=== PATIENT | male | born 1985 | race Two or more races ===

== ENCOUNTER 2019-04-19 18:20 | Emergency (ER) | payer SELFPAY ==
[2019-04-19] MEDS ORDERED: Diphtheria,Pertussis(Acell),Tetanus Vaccine 0.5 ML Syringe IM ONE (18:52)
--- NOTE | 2019-04-19 19:00 | EDM.PDOC ---
ED HPI GENERAL MEDICAL PROBLEM - General Chief Complaint: Wound Recheck Stated Complaint: LEG RECHECK Time Seen by Provider: 04/19/19 18:35 Source of Information: Reports: Patient, RN Notes Reviewed History Limitations: Reports: No Limitations - History of Present Illness INITIAL COMMENTS - FREE TEXT/NARRATIVE: Patient is a 33-year-old male who presents to the ED for evaluation of a wound check. The patient notes that he cut himself with an electrical saw roughly 1 week ago. He was never evaluated for this wound. This is located on his medial lateral right calf. He has been dressing this with hydrogen peroxide and bandages. He notes that the skin around the wound is dry, and is starting to turn purple in nature. He is not complaining of any drainage from the wound nor does he complain of any fevers or chills. He notes mild pain in the area of the wound when he dorsiflexes his right foot. Patient notes he is not sure of his last tetanus booster. - Related Data Allergies Allergy/AdvReac Type Severity Reaction Status Date / Time No Known Allergies Allergy Verified 04/19/19 18:52 Home Meds: Home Meds cephALEXin [Cephalexin] 500 mg PO TID #21 capsule 04/19/19 [Rx] Past Medical History - Past Health History Medical/Surgical History: Denies Medical/Surgical History Social & Family History - Tobacco Use Smoking Status *Q: Current Every Day Smoker Years of Tobacco use: 6 Packs/Tins Daily: 0.1 - Caffeine Use Caffeine Use: Reports: None - Recreational Drug Use Recreational Drug Use: No ED ROS GENERAL - Review of Systems Review Of Systems: See Below Constitutional: Denies: Fever, Chills HEENT: Reports: No Symptoms Respiratory: Denies: Shortness of Breath Cardiovascular: Denies: Chest Pain Endocrine: Reports: No Symptoms GI/Abdominal: Reports: No Symptoms : Reports: No Symptoms Musculoskeletal: Reports: No Symptoms Skin: Reports: Erythema (surrounding erythema to wound), Wound (healing wound to R medial lateral calf.) ED EXAM, SKIN/RASH Exam: See Below Exam Limited By: No Limitations General Appearance: Alert, WD/WN, No Apparent Distress Respiratory/Chest: No Respiratory Distress, Lungs Clear, No Accessory Muscle Use , Chest Non-Tender Cardiovascular: Normal Peripheral Pulses, Regular Rate, Rhythm, No Murmur Peripheral Pulses: 3+: Dorsalis Pedis (L), Dorsalis Pedis (R) Extremities: Normal Inspection (with exception of wound to R leg), Normal Range of Motion, Non-Tender, Normal Capillary Refill, Increased Warmth (mild increase of warmth to wound on R mediolateral leg) Neurological: Alert, Oriented, Normal Cognition, No Motor/Sensory Deficits Psychiatric: Normal Affect, Normal Mood Skin: Warm, Dry, Normal Color, No Rash, Wound/Incision (healing wound to the R medial lateral calf. Mild erythema surrounding the area. No drainage noted) Course - Vital Signs Last Recorded V/S: Last Vital Signs Temp 98.5 F 04/19/19 18:28 Pulse 111 H 04/19/19 18:28 Resp 17 04/19/19 18:28 BP 134/86 04/19/19 18:28 Pulse Ox 100 04/19/19 18:28 - Orders/Labs/Meds Orders: Active Orders 24 hr Category Date Time Status Vaccines to be Administered [RC] PER UNIT ROUTINE Care 04/19/19 18:53 Ordered Meds: Medications Discontinued Medications Generic Name Dose Route Start Last Admin Trade Name Freq PRN Reason Stop Dose Admin Diphtheria/Tetanus/Acell Pertussis 0.5 ml 04/19/19 18:52 Adacel IM 04/19/19 18:53 .ONCE ONE - Re-Assessments/Exams Free Text/Narrative Re-Assessment/Exam: 04/19/19 18:59 Patient presents to the ED for evaluation of a wound recheck to his right leg. As he is unsure of his last tetanus, he will have this updated at today's visit. The wound appears to be healing appropriately, however there is an area that is reddened around it suspicious for a cellulitis or developing cellulitis in nature. Will send home with a prescription of cephalexin for prophylaxis at this time. Departure - Departure Time of Disposition: 19:00 Disposition: Home, Self-Care 01 Condition: Fair Clinical Impression: Visit for wound check - Discharge Information *PRESCRIPTION DRUG MONITORING PROGRAM REVIEWED*: No *COPY OF PRESCRIPTION DRUG MONITORING REPORT IN PATIENT PIO: No Prescriptions: cephALEXin [Cephalexin] 500 mg PO TID #21 capsule Instructions: Cellulitis, Adult, Wound Infection, [id number] Referrals: PCP,None [Primary Care Provider] - Additional Instructions: You were evaluated in the ER today for a wound recheck of your right lower leg. There was some surrounding areas of the wound, that were suspicious for infection, you were provided with a prescription for cephalexin, please take one tab 3 times daily if the redness starts to spread 2 fingerbreadths past the wound. [facility] on [address] , you may pick this up on Saturday. Please keep the wound clean and dry, you may cleanse with warm soap and water, dress with some bacitracin ointment and a bandage. Your tetanus booster was updated at today's ER visit. Please return to the ED if your symptoms change or worsen in any way. - My Orders Last 24 Hours: My Active Orders 04/19/19 18:53 Vaccines to be Administered [RC] PER UNIT ROUTINE - Assessment/Plan Last 24 Hours: My Active Orders 04/19/19 18:53 Vaccines to be Administered [RC] PER UNIT ROUTINE
== END 2019-04-19 19:12 | disposition home or self-care (01) ==
LOC: EDBD 18:20 → JD.ED 18:20
DX: S81.801A Unspecified open wound, right lower leg, initial encounter (principal); F17.200 Nicotine dependence, unspecified, uncomplicated; W27.0XXA Contact with workbench tool, initial encounter
CPT/HCPCS: 90471; 90700; 99282

== ENCOUNTER 2023-02-15 17:09 | Emergency (ER) | payer SELFPAY ==
[2023-02-15] MEDS ORDERED: Fluorescein 1 MG Ophth Strip EYELF ONE (17:28)
== END 2023-02-15 18:10 | disposition home or self-care (01) ==
LOC: JD.ED 17:09
DX: S05.52XA Penetrating wound with foreign body of left eyeball, initial encounter (principal)
CPT/HCPCS: 65222; 99283

== ENCOUNTER 2023-09-07 04:09 | Emergency (ER) | payer SELFPAY ==
[2023-09-07 04:30] LABS: BASOPHILS PERCENT AUTO 0.5 % (0.0-1.0); EOSINOPHILS ABSOLUTE AUTO 0.3 K/mm3 (0.0-0.4); EOSINOPHILS PERCENT AUTO 3.5 % (0.0-6.0); HEMATOCRIT 44.7 % (42.0-52.0); HEMOGLOBIN 15.1 gm/dl (14.0-18.0); IMMATURE GRAN ABSOLUTE AUTO 0.01 K/mm3 (0.00-0.05); IMMATURE GRAN PERCENT AUTO 0.1 % (0.0-0.4); LYMPHOCYTES ABSOLUTE AUTO 2.2 K/mm3 (1.0-4.8); LYMPHOCYTES PERCENT AUTO 27.3 % (24.0-44.0); MEAN CORPUSCULAR HEMOGLOBIN 31.7 pg (28.0-32.0); MEAN CORPUSCULAR HGB CONC 33.8 g/dl (32.0-36.0); MEAN CORPUSCULAR VOLUME 93.9 fl (83.0-99.0); MEAN PLATELET VOLUME 8.8 fl (9.4-12.4); MONOCYTES ABSOLUTE AUTO 0.6 K/mm3 (0.0-0.8); MONOCYTES PERCENT AUTO 7.5 % (0.0-8.0); NEUTROPHILS ABSOLUTE AUTO 4.9 K/mm3 (1.8-7.7); NEUTROPHILS PERCENT AUTO 61.1 % (41.0-71.0); PLATELET COUNT,PLT 212 K/mm3 (150-400); RED BLOOD CELL COUNT 4.76 M/mm3 (4.52-5.90); WHITE BLOOD CELL COUNT,WBC 7.95 K/mm3 (3.9-11.3)
[2023-09-07 04:44] LABS: INR 1.14; PROTHROMBIN TIME 12.1 SECONDS (9.7-12.0)
[2023-09-07 04:45] LABS: PTT,PARTIAL THROMBOPLSTIN TIME 31.5 SECONDS (21.7-31.4)
[2023-09-07 04:56] LABS: A/G RATIO 1.1 (1-2); ALANINE AMINOTRANSFERASE,ALT 35 U/L (16-63); ALBUMIN 4.3 g/dl (3.4-5.0); ALKALINE PHOSPHATASE 94 U/L (46-116); ASPARTATE AMNIOTRANSFERASE,AST 18 U/L (15-37); BILIRUBIN TOTAL 0.2 mg/dL (0.2-1.0); BLOOD UREA NITROGEN,BUN 15 mg/dL (7-18); BUN/CREATININE RATIO 13.6 (14-18); CALCIUM 8.9 mg/dL (8.5-10.1); CARBON DIOXIDE,CO2 30 mEq/L (21-32); CHLORIDE,CL 105 mEq/L (98-107); CREATININE 1.1 mg/dL (0.7-1.3); EST CRCL DRUG DOSING (CG) 88.09 mL/min; ESTIMATED GFR 88 mL/min (>60); GLUCOSE RANDOM 147 mg/dL (70-99); PROTEIN TOTAL,TP 8.2 g/dl (6.4-8.2); SODIUM,NA 144 mEq/L (136-145)
[2023-09-07] MEDS: Aspirin 81 MG Tab.Chew PO ONE (04:58)
[2023-09-07] MEDS: Sodium Chloride 0.9% 10 ML Syringe FLUSH PRN (04:58)
[2023-09-07 05:20] LABS: TROPONIN I HIGH SENSITIVITY < 4 pg/mL (<=76)
[2023-09-07 05:23] LABS: D-DIMER QUANTITATIVE 0.36 mg/L (0.19-0.50)
[2023-09-07 06:22] LABS: CORONAVIRUS COVID-19 NAA NEGATIVE (NEGATIVE); INFLUENZA A NAA NEGATIVE (NEGATIVE); RESPIRATORY SYNCYTIAL VIR NAA NEGATIVE (NEGATIVE)
== END 2023-09-07 08:05 | disposition home or self-care (01) ==
LOC: JD.ED 04:09
DX: R07.89 Other chest pain (principal); Z87.891 Personal history of nicotine dependence
CPT/HCPCS: 0241U; 36415; 71045; 80053; 83735; 83880; 84484; 85025; 85379; 85610; 85730; 93005; 99285; A9270; J3490

== ENCOUNTER 2025-03-21 19:06 | Emergency (ER) | payer SELFPAY ==
[2025-03-21] MEDS: Tetracaine HCl/PF 0.5% 4 ML Bottle EYELF ONE (19:45)
[2025-03-21] MEDS: Fluorescein 1 MG Ophth Strip EYELF ONE (19:45)
== END 2025-03-21 20:00 | disposition home or self-care (01) ==
LOC: JD.ED 19:06
DX: S05.02XA Injury of conjunctiva and corneal abrasion without foreign body, left eye, initial encounter (principal); W44.8XXA Other foreign body entering into or through a natural orifice, initial encounter; Y93.89 Activity, other specified
CPT/HCPCS: 65220; 99283; A9270; J3490